=== PATIENT | male | born 1960 | race Caucasian/White ===

== ENCOUNTER 2017-01-14 21:35 | Emergency (ER) | payer OTHER ==
[2017-01-14 22:43] LABS: EOSINOPHIL 2.6 % (0-5); HCT 43.3 % (42.0-52.0); LYMPHOCYTE 34.7 % (15-48); MCH 33.2 pg (25.0-31.0); MCHC 34.6 g/dL (32.0-36.0); MCV 95.8 fL (78.0-100.0); MONOCYTE 7.6 % (0-12); MPV 8.8 fL (6.0-9.5); NEUTROPHIL 54.1 % (41-80); PLT 328 K/uL (150-400); RBC 4.52 M/uL (4.70-6.00); RDW 13.5 % (11.5-14.0); WBC 9.2 K/uL (4.0-10.5)
[2017-01-14 22:47] LABS: INR 0.97 (0.9-1.2); PROTHROMBIN TIME 12.5 SECONDS (11.7-14.0); PTT 29.7 SECONDS (23.2-31.4)
[2017-01-14 22:49] LABS: D-DIMER < 0.27 ug/mLFEU (0.00-0.41)
[2017-01-14 22:56] LABS: ALBUMIN 4.2 g/dL (3.5-5.0); BILIRUBIN - TOTAL 0.2 mg/dL (0.1-1.0); CREATININE 0.8 mg/dL (0.7-1.2); GLOBULIN (CALCULATION) 2.3 g/dL (2.2-4.2); MAGNESIUM 1.59 mg/dL (1.40-2.10); POTASSIUM 3.5 mmol/L (3.5-5.1); TOTAL PROTEIN 6.5 g/dL (6.4-8.3)
[2017-01-14 23:02] LABS: MYOGLOBIN 55 ng/mL (26-65); PRO-BNP 32 pg/mL (0-125); TROPONIN T < 0.010 ng/mL
== END 2017-01-15 01:38 | disposition home or self-care (01) ==
LOC: FER 21:35
PROVIDERS: Emergency Medicine
DX: R07.9 Chest pain, unspecified (principal); R10.819 Abdominal tenderness, unspecified site; R11.0 Nausea; I10 Essential (primary) hypertension; E78.5 Hyperlipidemia, unspecified; F17.210 Nicotine dependence, cigarettes, uncomplicated; Z79.899 Other long term (current) drug therapy; Z87.19 Personal history of other diseases of the digestive system
CPT/HCPCS: 36415; 71010; 80053; 82550; 82553; 83735; 83874; 83880; 84484; 85025; 85379; 85610; 85730; 93005

== ENCOUNTER → 2017-01-29 | Day surgery (SDC) | payer OTHER ==
[~2017-01-29] VITALS: Ht 185.4 cm; Wt 93.4 kg
== END | disposition home or self-care (01) ==
LOC: FAS 11:38
DX: Z12.11 Encounter for screening for malignant neoplasm of colon (principal); K21.0 Gastro-esophageal reflux disease with esophagitis; K22.70 Barrett's esophagus without dysplasia; K63.5 Polyp of colon; D12.3 Benign neoplasm of transverse colon; D12.4 Benign neoplasm of descending colon; D12.8 Benign neoplasm of rectum; K57.30 Diverticulosis of large intestine without perforation or abscess without bleeding; K21.9 Gastro-esophageal reflux disease without esophagitis; E11.9 Type 2 diabetes mellitus without complications; F17.210 Nicotine dependence, cigarettes, uncomplicated; I10 Essential (primary) hypertension; Z79.899 Other long term (current) drug therapy
CPT/HCPCS: 88305; J2704